=== PATIENT | female | born 1970 | race Caucasian/White ===

== ENCOUNTER 2022-08-31 10:24 | Outpatient (CLI) | payer BC, SELFPAY ==
[2022-08-31 13:58] LABS: Albumin* 4.7 g/dL (3.3-5.0); Chloride* 103 mmol/L (96-114)
[2022-08-31 13:59] LABS: Potassium* 4.5 mmol/L (3.6-5.1); Sodium* 137 mmol/L (135-149)
[2022-08-31 14:01] LABS: Alanine Aminotransferase* 24 U/L (4-35); Alkaline Phosphatase* 77 U/L (40-150); Aspartate Amino Transferase* 31 U/L (12-35); Bilirubin Total* 0.7 mg/dL (0.1-1.5); Blood Urea Nitrogen* 15 mg/dL (7-30); Calcium* 9.3 mg/dL (8.4-10.6); Carbon Dioxide* 24 mmol/L (20-32); Cholesterol* 250 mg/dL (90-199); Creatinine* 0.7 mg/dL (0.5-1.5); Estimated Glomerular Filt Rate 104 ml/min; Glucose* 85 mg/dL (60-115); Total Protein* 7.9 g/dL (6.0-8.3); Triglycerides* 96 mg/dL (40-149)
[2022-08-31 14:02] LABS: HDL Cholesterol* 66 mg/dL (>=50); LDL Cholesterol Calculated 165 mg/dL (<100)
[2022-09-02 14:01] LABS: Follicle Stimulating Hormone 10.4 IU/L
== END 2022-08-31 10:25 | disposition home or self-care (01) ==
PROVIDERS: Visit Provider Physician Assistant Medical
DX: Z01.419 Encounter for gynecological examination (general) (routine) without abnormal findings (principal); Z13.6 Encounter for screening for cardiovascular disorders; Z11.3 Encounter for screening for infections with a predominantly sexual mode of transmission
CPT/HCPCS: 80053; 80061; 83001

== ENCOUNTER 2022-08-31 11:27 | Outpatient (CLI) | payer BC, SELFPAY ==
--- NOTE | 2022-08-31 11:30 | CRLHL7_ITS ---
For Patients: As a result of the Century Cures Act, medical imaging exams and procedure reports are released immediately into your electronic medical record. You may view this report before your referring provider. If you have questions, please contact your health care provider. BILATERAL SCREENING MAMMOGRAM WITH COMPUTER-AIDED DETECTION AND TOMOSYNTHESIS TECHNIQUE: CC and MLO views were obtained. These mammographic images have been obtained using full-field digital technique. These mammographic images were interpreted with the benefit of computer-aided detection. Breast Tomosynthesis was used in this interpretation. COMPARISON FILM: 08/18/21, 08/12/20,08/11/19. FINDINGS: The breasts are heterogeneously dense, which may obscure small masses IMPRESSION: There is no radiographic evidence for malignancy. ASSESSMENT: BI-RADS Category 1: Negative RECOMMENDATION: Routine screening mammogram in 1 year. A lay language report of this examination will be provided to the patient. Alexis Miller M.D. Diagnostic Radiologist [email or web address] Transcribed: 8:05 p.m. ELLA/Dictated by: Alexis Miller MD @ 09/01/2022 11:47:00 AM (Electronically Signed)
== END 2022-08-31 11:28 | disposition home or self-care (01) ==
LOC: MAMMO 11:28
PROVIDERS: Visit Provider Physician Assistant Medical
DX: Z12.31 Encounter for screening mammogram for malignant neoplasm of breast (principal); R92.2 Inconclusive mammogram
CPT/HCPCS: 77063; 77067

== ENCOUNTER 2023-09-01 13:37 | Outpatient (CLI) | payer BC, SELFPAY | END 2023-09-01 13:38 | disposition home or self-care (01) | PROVIDERS: PCP Physician Assistant Medical; Visit Provider Physician Assistant Medical | DX: Z00.00 Encounter for general adult medical examination without abnormal findings (principal); R05.9 Cough, unspecified; Z13.6 Encounter for screening for cardiovascular disorders; Z13.0 Encounter for screening for diseases of the blood and blood-forming organs and certain disorders involving the immune mechanism | CPT/HCPCS: 80053; 80061; 82306; 82652 ==

== ENCOUNTER 2023-09-07 12:52 | Outpatient (CLI) | payer BC, SELFPAY ==
--- NOTE | 2023-09-07 13:00 | CRLHL7_ITS ---
For Patients: As a result of the Century Cures Act, medical imaging exams and procedure reports are released immediately into your electronic medical record. You may view this report before your referring provider. If you have questions, please contact your health care provider. BILATERAL SCREENING MAMMOGRAM WITH COMPUTER-AIDED DETECTION AND TOMOSYNTHESIS TECHNIQUE: CC and MLO views were obtained. These mammographic images have been obtained using full-field digital technique. These mammographic images were interpreted with the benefit of computer-aided detection. Breast Tomosynthesis was used in this interpretation. COMPARISON FILM: 08/31/22, 08/18/21, 08/12/20. FINDINGS: The breasts are heterogeneously dense, which may obscure small masses IMPRESSION: There is no radiographic evidence for malignancy. ASSESSMENT: BI-RADS Category 1: Negative RECOMMENDATION: Routine screening mammogram in 1 year. A lay language report of this examination will be provided to the patient. Alexis Miller M.D. Diagnostic Radiologist [email or web address] ELLA/Dictated by: Alexis Miller MD @ 09/08/2023 9:02:00 AM (Electronically Signed)
== END 2023-09-07 12:53 | disposition home or self-care (01) ==
LOC: MAMMO 12:53
PROVIDERS: PCP Physician Assistant Medical; Visit Provider Physician Assistant Medical
DX: Z12.31 Encounter for screening mammogram for malignant neoplasm of breast (principal); R92.2 Inconclusive mammogram
CPT/HCPCS: 77063; 77067

== ENCOUNTER 2023-09-27 11:40 | Outpatient (CLI) | payer BC, SELFPAY | END 2023-09-27 11:41 | disposition home or self-care (01) | LOC: NFLDREF 09-28 12:24 | PROVIDERS: PCP Physician Assistant Medical; Referring Provider Physician Assistant Medical; Visit Provider Physician Assistant Medical | DX: Z00.00 Encounter for general adult medical examination without abnormal findings (principal); D69.6 Thrombocytopenia, unspecified | CPT/HCPCS: 80053; 86703; 86803 ==

== ENCOUNTER 2024-06-23 09:22 | Emergency (ER) | payer BC, SELFPAY ==
[2024-06-23 09:27] VITALS: BP 121/72; PULSE 91; RESP 16; TEMP 36.9; O2SAT 96; BMI 23.5
--- NOTE | 2024-06-23 09:59 | ED.GENADULT ---
HPI - General Adult General Date Seen: 06/23/24 Chief complaint: Allergic Reaction Stated complaint: Tongue swelling, hive on leg Time Seen by Provider: 06/23/24 09:33 History of Present Illness HPI narrative: This is a pleasant 50-year-old female with a history of rosacea, thrombocytopenia, nasal septal deviation, and angioedema presenting to the ER today with swelling of the left half of her tongue. She presents with her . She has had a history of episodes of intermittent swelling of parts of her body for about the past year or so. They happen every couple of weeks. She and her have not been able to identify any clear pattern or relationship to food, mouthwash, toothpaste, soap, activity, her medications. She is not on any lisinopril or EWELINA inhibitors. She has no other history of autoimmune diseases or malignancy. She has photos on her phone that have shown various stages of of angioedema sometimes affecting her right cheek, sometimes her lips, sometimes left cheek. She also has had a few times affecting her the fingertips on her left hand (not on her right hand). She saw an electrophysiology technician for this once in was told that she has angioedema. Her electrophysiology technician recommended that she take Zyrtec for flares. She had a flare a few weeks ago in the part of May of since then has been taking Zyrtec every day. She started having her current flare last night when she was going to bed, around 11:00 p.m.. She noticed a little bit of swelling and tingling on the left side of her tongue. It became swollen last night in his remains swollen overnight. She called the in clinic nurse this morning and was told to come to the ER because of the tongue swelling. She is not having any swelling in the back of her throat. No trouble breathing. No swelling of her lips this time. No other swollen areas. No hives. No other systemic symptoms or dizziness. No trouble breathing. Her left leg tongue swelling has been present for about 10 or 11 hours and has been stable (not worsening for the past 8 or 9 hours, at least) and might be starting to get slightly better at this point. Related Data Home Medications ?Medication ?Instructions ?Recorded ?Confirmed Magnesium PO 08/31/22 06/21/24 ergocalciferol (vitamin D2) 10 mcg 400 unit PO DAILY 08/31/22 06/21/24 (400 unit) tablet multi vitamin PO 08/31/22 06/21/24 Previous Rx's ?Medication ?Instructions ?Recorded albuterol sulfate 90 mcg/actuation 2 puff inhalation Q4-6H PRN 09/01/23 aerosol inhaler shortness of breath or wheezing #8.5 grams Allergies Allergy/AdvReac Type Severity Reaction Status Date / Time Penicillins AdvReac Hives Verified 06/21/24 11:57 PFSH PFSH Medical History Mucoid cyst of joint ?M67.40 - Ganglion, unspecified site (ICD-10) Rash ?R21 - Rash and other nonspecific skin eruption (ICD-10) Stiff neck ?M43.6 - Torticollis (ICD-10) Surgical History History of rhinoplasty ?Z98.890 - Other specified postprocedural states (ICD-10) History of eyelid surgery ?Z98.890 - Other specified postprocedural states (ICD-10) Status post endometrial ablation (2018) ?Z98.890 - Other specified postprocedural states (ICD-10) Family History Mother Glaucoma Father Diabetes High blood pressure Prostate cancer Social History Narrative: The patient is , Gage. She is employed full-time as a payroll and benefits specialist, works from home. Never Smoker. She drinks 1-5 alcoholic beverage per week. She denies illicit drug use. No specific exercise routine Smoking Status: Never smoker Little interest or pleasure in doing things: not at all Feeling down, depressed, or hopeless: not at all Exam Narrative: Exam Narrative: Constitutional: Appears well-developed and well-nourished. Alert. Conversant. Non toxic. HENT: Head: Atraumatic. Nose: Nose normal. Mouth/Throat: She does have edema affecting the left half of her tongue. Lips are normal. Gums are normal. Submandibular space is normal. No trismus. Mallampati grade 2. Her tonsillar pillars and posterior oropharynx appears normal. Phonation normal. No stridor. Nose normal. Oral mucosa is clear and moist. no trismus. Pharynx normal. Tonsils symmetric. No tonsillar enlargement, erythema, or exudate. Eyes: Conjunctivae normal. EOM normal. Pupils equal, round, and reactive to light. No scleral icterus. Neck: Normal range of motion. Neck supple. No tracheal deviation present. Cardiovascular: Normal rate, regular rhythm. No gallop. No friction rub. No murmur heard. Symmetric radial artery pulses Pulmonary/Chest: Effort normal. No stridor. No respiratory distress. No wheezes. No rales. No rhonchi . No tenderness. Abdominal: Soft. Bowel sounds normal. No distension. No mass. No tenderness. No rebound. No guarding. Musculoskeletal: RUE: Normal range of motion. No tenderness. No deformity LUE: Normal range of motion. No tenderness. No deformity RLE: Normal range of motion. No edema. No tenderness. No deformity LLE: Normal range of motion. No edema. No tenderness. No deformity Neurological: Alert and oriented to person, place, and time. Normal strength. CN II-VII intact. No sensory deficit. GCS eye subscore is 4. GCS verbal subscore is 5. GCS motor subscore is 6. Normal coordination Skin: Skin is warm and dry. No hives. No rash noted. No pallor. Normal capillary refill. Psychiatric: Normal mood. Normal affect. Const: Vital Signs, click to edit/add: Vital Signs - 24 hr 06/23/24 09:27 Temperature 98.5 F Pulse Rate [Pulse Oximeter] 91 Respiratory Rate 16 Blood Pressure [Ri ght Upper Arm] 121/72 Pulse Oximetry 96 Oxygen Delivery Me thod Room Air Course Vital Signs Vital signs: Initial Vital Signs Temperature 98.5 F 06/23/24 09:27 Temperature Source Temporal Artery Scan 06/23/24 09:27 Pulse Rate 91 06/23/24 09:27 Respiratory Rate 16 06/23/24 09:27 Blood Pressure 121/72 06/23/24 09:27 Blood Pressure Mean 88 06/23/24 09:27 Pulse Oximetry 96 06/23/24 09:27 Oxygen Delivery Method Room Air 06/23/24 09:27 Vital Signs Temperature 98.5 F 06/23/24 09:27 Pulse Rate 91 06/23/24 09:27 Respiratory Rate 16 06/23/24 09:27 Blood Pressure 121/72 06/23/24 09:27 Pulse Oximetry 96 06/23/24 09:27 Oxygen Delivery Method Room Air 06/23/24 09:27 Temperature 98.5 F 06/23/24 09:27 Pulse Rate 91 06/23/24 09:27 Respiratory Rate 16 06/23/24 09:27 Blood Pressure 121/72 06/23/24 09:27 Pulse Oximetry 96 06/23/24 09:27 Oxygen Delivery Method Room Air 06/23/24 09:27 Medical Decision Making MDM Narrative Medical decision making narrative: This is a very pleasant 54-year-old female with a history of episodic angioedema happening every few weeks for the past year so. In the past typically affected her face, lips, sometimes her left hand. This current episode is affecting the left half of her tongue. She was sent to the ER by the triage nurse over the phone with concern for possible airway compromise. However her airway is clearly patent here in the ER. She has had the left tongue swelling since last night and it has been stable. No signs of progressive swelling or any concerned that she has imminent danger to her airway. No signs or symptoms to suggest that she is having any angioedema affecting her pharynx or laryngeal structures. I do not think she needs laryngoscopy or fiberoptic scope at this time. She and her agree. She says that she thinks her tongue is actually starting to improve. Cause for the angioedema is unclear. She had seen an electrophysiology technician who recommended that she go on antihistamines to treat it. However she has had a couple of flares of it while on the Zyrtec and that is clearly not helping. She is not having any known allergen exposure and has no other symptoms of allergic reaction such as hives, bronchospasm, GI symptoms. I doubt that this is histamine related angioedema/allergic reaction. I do not think she would get benefit from epinephrine, steroids, or a burst of antihistamines today. Consider hereditary angioedema or acquired angioedema. Overall since she is improving and is not having any life-threatening complication of angioedema, would hold off on medications such as bearing hurt at this point, given there grade expense. She does need further workup. She apparently had some labs drawn by her electrophysiology technician in the clinic (on a day when she was not symptomatic) that were normal. We do not know what those labs were. Given that she is having active symptoms today we will send off serum a C4 levels, quantitative and functional C1 esterase inhibitor levels, and C1 Q levels. Obviously these labs will be sent out and will not result for several days. They will not help us with management today. However measurement of these levels may help her primary care provider or her electrophysiology technician determine the underlying cause of her episodic angioedema and help determine a long-term management strategy. Patient and her understand that we can draw the labs today but not result them and that they will have to follow up in clinic to discuss the test results and determine plan of care. C4 levels will typically be decreased in hereditary angioedema type 1 and hereditary angioedema type 2, as well as decreased in acquired angioedema. C1 esterase inhibitor levels will typically be decreased in her hereditary angioedema type 1 and in acquired angioedema but normal in hereditary angioedema type 2. Functional C1 esterase inhibitor levels will be decreased in hereditary and angioedema type 1, decreased in hereditary angioedema type 2, and decreased in acquired angioedema. C1q levels will typically be decreased in acquired angioedema but normal otherwise. Discharge Plan Discharge Clinical Impression: Angioedema Patient Disposition: Home, Self-Care Condition: Stable Instructions: Angioedema (ED) Additional Instructions: As we discussed, please come back to the ER immediately if you have any worsening swelling or trouble breathing or any concerns. Please follow-up with your regular doctor your your community engagement specialist next week to follow-up on the lab tests that we pinky for you in the ER today. Her lab tests will not come back for several days. It is very important to follow-up with your doctor to find out the test results and discuss the potential causes of your angioedema Prescriptions: No Action ergocalciferol (vitamin D2) 10 mcg (400 unit) tablet 400 unit PO DAILY multi vitamin PO Magnesium PO Patient Comments: Patient does not know the dose. albuterol sulfate 90 mcg/actuation HFA aerosol inhaler 2 puff inhalation Q4-6H PRN (Reason: shortness of breath or wheezing) Qty: 8.5 0RF Rx Instructions: Take 2 puffs every 4-6 hours as needed for cough Follow Up/Referrals: Peace Dietz PA-C [Primary Care Provider] - Stand Alone Forms: [facility] Info Instructions
== END 2024-06-23 11:25 | disposition home or self-care (01) ==
PROVIDERS: Emergency Provider Emergency Medicine; PCP Physician Assistant Medical
DX: T78.3XXA Angioneurotic edema, initial encounter (principal)
CPT/HCPCS: 36415; 86160; 99282; 99283

== ENCOUNTER 2024-09-04 12:14 | Outpatient (CLI) | payer BC, SELFPAY | END 2024-09-04 12:15 | disposition home or self-care (01) | PROVIDERS: PCP Physician Assistant Medical; Visit Provider Physician Assistant Medical | DX: Z00.00 Encounter for general adult medical examination without abnormal findings (principal); D69.6 Thrombocytopenia, unspecified; M25.50 Pain in unspecified joint; Z13.1 Encounter for screening for diabetes mellitus; T78.3XXA Angioneurotic edema, initial encounter | CPT/HCPCS: 80053; 80061; 84443; 86200; 86431 ==

== ENCOUNTER 2024-09-13 14:17 | Outpatient (CLI) | payer BC, SELFPAY ==
--- NOTE | 2024-09-13 14:20 | CRLHL7_ITS ---
For Patients: As a result of the Century Cures Act, medical imaging exams and procedure reports are released immediately into your electronic medical record. You may view this report before your referring provider. If you have questions, please contact your health care provider. BILATERAL SCREENING MAMMOGRAM WITH COMPUTER-AIDED DETECTION AND TOMOSYNTHESIS TECHNIQUE: CC and MLO views were obtained. These mammographic images have been obtained using full-field digital technique. These mammographic images were interpreted with the benefit of computer-aided detection. Breast tomosynthesis was used in this interpretation. COMPARISON FILM: 09/07/23, 08/31/22, 08/18/21. FINDINGS: The breasts are heterogeneously dense, which may obscure small masses. IMPRESSION: There is no radiographic evidence for malignancy. ASSESSMENT: BI-RADS Category 1: Negative RECOMMENDATION: Routine screening mammogram in 1 year. A lay language report of this examination will be provided to the patient. ALEXSI CURRAN M.D. Diagnostic Radiologist [email or web address] Transcribed: 09/15/2024, 4:[address]/Dictated by: Alexis Curran MD @ 09/15/2024 8:02:00 AM (Electronically Signed)
== END 2024-09-13 14:18 | disposition home or self-care (01) ==
LOC: MAMMO 14:18
PROVIDERS: PCP Physician Assistant Medical; Visit Provider Physician Assistant Medical
DX: Z12.31 Encounter for screening mammogram for malignant neoplasm of breast (principal); R92.333 Mammographic heterogeneous density, bilateral breasts
CPT/HCPCS: 77063; 77067

== ENCOUNTER 2025-09-10 13:24 | Outpatient (CLI) | payer BC, SELFPAY | END 2025-09-10 13:25 | disposition home or self-care (01) | PROVIDERS: PCP Physician Assistant Medical; Visit Provider Physician Assistant Medical | DX: Z00.00 Encounter for general adult medical examination without abnormal findings (principal); L65.9 Nonscarring hair loss, unspecified | CPT/HCPCS: 80048; 80061; 82306; 82607; 82728; 83001; 84443; 86812 ==

== ENCOUNTER 2025-09-20 08:02 | Outpatient (CLI) | payer BC, SELFPAY ==
--- NOTE | 2025-09-20 08:15 | CRLHL7_ITS ---
For Patients: As a result of the Century Cures Act, medical imaging exams and procedure reports are released immediately into your electronic medical record. You may view this report before your referring provider. If you have questions, please contact your health care provider. INDICATION: BILATERAL SCREENING MAMMOGRAM, ASYMPTOMATIC 55 Y/O FEMALE COMPARISON: 09/13/2024, 09/07/2023, 08/31/2022 TECHNIQUE: Digital mammogram in CC and MLO projections including computer-aided detection (CAD) and tomosynthesis. BREAST COMPOSITION: The breasts are heterogeneously dense, which may obscure small masses. FINDINGS: No suspicious findings. ASSESSMENT: BI-RADS 1 Negative RECOMMENDATION: Annual screening mammogram. A lay language report of this examination will be provided to the patient. Dictated by: Alexis Miller MD @ 09/20/2025 10:18:55 (Electronically Signed)
== END 2025-09-20 08:03 | disposition home or self-care (01) ==
LOC: MAMMO 08:02
PROVIDERS: PCP Physician Assistant Medical; Visit Provider Physician Assistant Medical
DX: Z12.31 Encounter for screening mammogram for malignant neoplasm of breast (principal); R92.333 Mammographic heterogeneous density, bilateral breasts
CPT/HCPCS: 77063; 77067